=== PATIENT | male | born 1925 | race African-American/Black ===

== ENCOUNTER 2016-04-29 15:19 | Observation (INO) | payer OTHER ==
[~2016-04-29] VITALS: Ht 170.2 cm; Wt 77.3 kg
[~2016-04-29 15:19] MED LIST: ASPI1TAB69 PO; ATOR10TA15 PO; CEPH-460 PO; COLA100C3 PO; COZA25TA PO; FURO20TA PO; METH500T3 PO; METO50TA PO; POTA-243 PO; PROT40TA PO; ZANT150T2 PO
[2016-04-29 15:20] VITALS: BP 136/83; PULSE 77; RESP 16; TEMP 98.2; O2SAT 96
[2016-04-29] MEDS ORDERED: SODIUM CHLORIDE 0.9% FLUSH 5 ML FLUSH IVF PRN (17:15)
[2016-04-29] MEDS ORDERED: MORPHINE SULFATE 4 MG/ML INJ IV PUSH ONE (17:15)
[2016-04-29 17:49] LABS: HEMATOCRIT 46.4 % (39.0-51.0); MEAN CELL VOLUME 88.2 FL (80.0-100.0); MEAN CORPUSCULAR HEMOGLOBIN 28.7 PG (27.0-34.0); MEAN CORPUSCULAR HGB CONC 32.5 % (32.0-36.0); PLATELET COUNT 188 TH/MM3 (150-450); RED BLOOD COUNT 5.26 MIL/MM3 (4.50-5.90); RED CELL DISTRIBUTION WIDTH 14.8 % (11.6-17.2); WHITE BLOOD COUNT 7.4 TH/MM3 (4.0-11.0)
[2016-04-29 17:50] LABS: HEMO FLAGS AUTO DIFF
[2016-04-29 18:02] LABS: APTT (PATIENT) 26.4 SEC (24.3-30.1); INTERNATIONAL NORMALIZED RATIO 1.1 RATIO; PROTHROMBIN TIME - PATIENT 11.8 SEC (9.8-11.6)
--- NOTE | 2016-04-29 18:05 | RADRPT ---
EXAM DATE/TIME: 04/29/2016 17:45 [facility] COMPARISON: CHEST SINGLE AP, March 20, 2016, 15:27. INDICATIONS : Patient fell complains of pain low back area MEDICAL HISTORY : Hypertension. Chronic obstructive pulmonary disease. Carcinoma, bladderCHF, Asthma SURGICAL HISTORY : CABG. Pacemaker. ENCOUNTER: Initial ACUITY: 1 day PAIN SCORE: 9/10 LOCATION: Bilateral chest FINDINGS: A single view of the chest demonstrates the lungs to be symmetrically aerated with persistent atelect asis or scarring in the left base. Lungs are otherwise clear. Heart size is borderline wall compensat ed. Median sternotomy wires and coronary ostial rings are characteristic of prior CABG. Left subclavi an bipolar pacer is radiographically intact. Osseous structures are intact with some degenerative spu rring of the dorsal spine. CONCLUSION: 1. Persistent left basilar atelectasis/scarring. 2. No acute infiltrate. Stable postsurgical changes. Juan Crawley MD on April 29, 2016 at 18:00 Board Certified Radiologist. This report was verified electronically.
[2016-04-29 18:13] LABS: EOSINOPHILS 9 % (0-4); NEUTROPHIL # MANUAL DIFF 5.3 TH/MM3 (1.8-7.7); PLATELET ESTIMATE SMEAR NORMAL (NORMAL); PLATELET MORPHOLOGY NORMAL (NORMAL); POLYS (SEG NEUTROPHILS) 71 % (16-70); SCAN/DIFF FINAL DIFF MANUAL; WBC DIFF SAMPLE 100
--- NOTE | 2016-04-29 18:34 | RADRPT ---
EXAM DATE/TIME: 04/29/2016 17:59 [facility] COMPARISON: CT BRAIN W/O CONTRAST, January 26, 2014, 13:33. INDICATIONS : Trauma; fall. RADIATION DOSE: 56.35 CTDIvol (mGy) MEDICAL HISTORY : Hypertension. Cardiovascular disease SURGICAL HISTORY : None. ENCOUNTER: Initial ACUITY: 1 day PAIN SCALE: 7/10 LOCATION: cranial TECHNIQUE: Multiple contiguous axial images were obtained of the head. Using automated exposure control and adj ustment of the mA and/or kV according to patient size, radiation dose was kept as low as reasonably a chievable to obtain optimal diagnostic quality images. FINDINGS: CEREBRUM: The ventricles are normal for age. Mild cortical atrophic changes. 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 No evidence of midline shift, mass lesion, hemorrhage or acute infarction. No extra-axial fluid collections are seen. POSTERIOR FOSSA: The cerebellum and brainstem are intact. The 4th ventricle is midline. The cerebellopontine angle i s unremarkable. EXTRACRANIAL: The visualized portion of the orbits is intact. SKULL: The calvaria is intact. No evidence of skull fracture. CONCLUSION: 1. Mild chronic changes with some cortical atrophy and an old lacunar type infarct in the right cauda te head. 2. No acute intracranial process. Juan Crawley MD on April 29, 2016 at 18:30 Board Certified Radiologist. This report was verified electronically.
--- NOTE | 2016-04-29 18:53 | RADRPT ---
EXAM DATE/TIME: 04/29/2016 18:01 [facility] COMPARISON: No previous studies available for comparison. INDICATIONS : Fall. RADIATION DOSE: 36.81 CTDIvol (mGy) MEDICAL HISTORY : Cardiovascular disease. Hypertension. SURGICAL HISTORY : None. ENCOUNTER: Initial ACUITY: 1 day PAIN SCORE: 5/10 LOCATION: facial TECHNIQUE: Volumetric scanning of the facial bones was performed. Using automated exposure control and adjustme nt of the mA and/or kV according to patient size, radiation dose was kept as low as reasonably achiev able to obtain optimal diagnostic quality images. FINDINGS: ORBITS: The orbital and infraorbital osseous structures are intact. The retroconal structures have a normal configuration. No radiopaque foreign bodies are seen. NASAL BONE: The nasal bone and maxillary spine are intact ZYGOMATIC ARCHES: Symmetric without evidence of fracture. SINUSES: The maxillary, ethmoid and frontal sinuses are intact. No air-fluid levels seen. NASAL CAVITY: The nasal septum is intact and midline. The lacrimal ducts are intact. Prominent nasoantral windows bilaterally. SOFT TISSUES: No radiopaque foreign bodies seen. No soft-tissue swelling is seen. INTRACRANIAL: No intracranial air seen. CRIBIFORM PLATE: Grossly intact. CONCLUSION: No acute osseous injury. Juan Crawley MD on April 29, 2016 at 18:50 Board Certified Radiologist. This report was verified electronically.
--- NOTE | 2016-04-29 19:00 | RADRPT ---
EXAM DATE/TIME: 04/29/2016 17:59 [facility] COMPARISON: CT CERVICAL SPINE W/O CONTRAST, March 17, 2016, 0:40. INDICATIONS : Fall neck pain. RADIATION DOSE: 23.53 CTDIvol (mGy) MEDICAL HISTORY : Cardiovascular disease. Hypertension. SURGICAL HISTORY : None. ENCOUNTER: Initial ACUITY: 1 day PAIN SCALE: 4/10 LOCATION: Bilateral neck TECHNIQUE: Volumetric scanning of the cervical spine was performed. Multiplanar reconstructions i n the sagittal, coronal and oblique axial planes were performed. Using automated exposure control a nd adjustment of the mA and/or kV according to patient size, radiation dose was kept as low as reason ably achievable to obtain optimal diagnostic quality images. FINDINGS: The sagittal and coronal reconstructions show multilevel degenerative disc disease involving just abo ut every level of the cervical spine with loss of disc height and marginal spurring. Vacuum disc phe nomenon is seen at C5-C6 and C6-C7. There is straightening of the normal lordotic curvature with a g rade I anterolisthesis of C4 on C5. Coronal images show bony fusion across the facet articulations a t multiple cervical levels, particularly on the right. Facet hypertrophy is most prominent rightward at C3-C4. Vertebral body heights are maintained without evidence of fracture. Despite degenerative changes, I believe the spinal canal remains adequate. Detailed axial images as follows: . C2-C3: The bony spinal canal is normal in size. No evidence of disc bulge or herniation. The neura l foramina are bilaterally patent. C3-C4: Rightward facet hypertrophy with uncovertebral ridging narrows the neural foramina bilaterall y, right worse than left. C4-C5: Uncovertebral ridging with some narrowing of the left neural foramen. Spinal canal and right neural foramen are adequate. C5-C6: Uncovertebral ridging. Spinal canal and neural foramina are adequate. C6-C7: Uncovertebral ridging with some facet hypertrophy. Spinal canal and neural foramina are miller nt. C7-T1: Spinal canal and neural foramina are patent. CONCLUSION: 1. Multilevel degenerative disc disease with loss of disc height and marginal spurring at almost michelle ry cervical level. There is straightening of the normal lordotic curvature and stable grade I wendy listhesis of C4 on C5 probably due to facet degeneration. 2. Multilevel bony fusion across the facets of the cervical spine, right greater than left. 3. There is some foraminal narrowing most prominent at C3-C4 rightward and C4-C5 leftward which may compromise their corresponding exiting nerve roots. 4. No significant change from prior. Juan Crawley MD on April 29, 2016 at 18:45 Board Certified Radiologist. This report was verified electronically.
--- NOTE | 2016-04-29 19:05 | RADRPT ---
EXAM DATE/TIME: 04/29/2016 18:03 [facility] COMPARISON: No previous studies available for comparison. INDICATIONS : Lower back pain, fall. RADIATION DOSE: 35.76 CTDIvol (mGy) MEDICAL HISTORY : Cardiovascular disease. Hypertension. SURGICAL HISTORY : None. ENCOUNTER: Initial ACUITY: 1 day PAIN SCALE: 5/10 LOCATION: Lower back TECHNIQUE: Volumetric scanning of the lumbar spine was performed. Multiplanar reconstructions in the sagittal, coronal and oblique axial planes were performed. Using automated exposure control and adjustment of the mA and/or kV according to patient size, radiation dose was kept as low as reasonably achievable t o obtain optimal diagnostic quality images. FINDINGS: Sagittal and coronal reconstructions show multilevel degenerative disc disease with bridging anterior osteophytes in the lower dorsal spine as well as prominent lateral osteophytes at L3-L4 rightward an d bilaterally at L4-L5, left greater than right. There is bony fusion at L1-L2 with an osseous cyst across the fused vertebral bodies. Vertebral body heights are maintained without evidence of an acut e fracture. The coronal images show coarsened trabeculae involving the left ilium characteristic of Paget's disease. There is some atherosclerotic calcification of the regional vasculature. On the axial source images, multilevel marginal spurring is identified. There is some encroachment o n the neural foramina at multiple levels but I believe the spinal canal and neural foramina are adequ ate despite the degenerative changes described above. Again, no acute fracture. CONCLUSION: 1. Multilevel degenerative disc disease with marginal spurring most prominent at L3-L4 and L4-L5. 2. Bony fusion at L1-L2 with an osseous cyst bridging the fused endplates. No acute fracture. 3. Coarsened trabeculae in the left ilium characteristic of Paget's disease. 4. No acute osseous injury. Juan Crawley MD on April 29, 2016 at 18:55 Board Certified Radiologist. This report was verified electronically.
[2016-04-29 19:12] VITALS: BP 123/74; PULSE 72; RESP 16; TEMP 98.5; O2SAT 96
[2016-04-29 19:26] LABS: BICARBONATE 26.2 MEQ/L (21.0-32.0); POTASSIUM 4.2 MEQ/L (3.5-5.1)
[2016-04-29] MEDS ORDERED: ULTR50TA5 PO (19:36)
--- NOTE | 2016-04-29 19:36 | PD ---
HPI Chief Complaint: Fall Time Seen by Provider: 17:03 Travel History International Travel<30 days: No Contact w/Intl Traveler<30days: No Traveled to known affect area: No History of Present Illness HPI Patient is an 81-year-old male who had a trip and fall at home states she missed a step going down into his living room and fell on his face. Patient states he was ambulatory after the event but during dinner he had a significant spasm and continues to freeze up and having pain in his lower back in the midline as well as on the right side. He states he was unable to ambulate and his neighbor had to help him to his car and his neighbor drove him in here today. Patient states he has not been having a chest pain shortness of breath abdominal pain nausea vomiting diarrhea. He states he thinks he hit his face flat on the carpet. He states that he thinks he fell hard enough that if he was falling on concrete he likely would've had fractures of his face. PFSH Past Medical History Hx Anticoagulant Therapy: Yes Asthma: No Blood Disorders: No Anxiety: No Depression: No Heart Rhythm Problems: No Cancer: Yes (BLADDER) Cardiac Catheterization: No Cardiovascular Problems: Yes (PACEMAKER, CABG) High Cholesterol: Yes Chemotherapy: No Chest Pain: No Congestive Heart Failure: No COPD: No Diabetes: No Diminished Hearing: Yes Endocrine: No Gastrointestinal Disorders: No Glaucoma: No Genitourinary: No Hepatitis: No Hiatal Hernia: No Hypertension: Yes Immune Disorder: No Implanted Vascular Access Dvce: No Medical other: No Musculoskeletal: No Neurologic: No Psychiatric: No Reproductive: No Respiratory: Yes (TB 60 YRS AGO) Immunizations Current: Yes Radiation Therapy: No Sleep Apnea: No Thyroid Disease: No Past Surgical History Abdominal Surgery: Yes (COLON RESECTION) Cardiac Surgery: Yes (AICD PACEMAKER 03/20/16) Coronary Artery Bypass Graft: No Genitourinary Surgery: Yes (tumor removed off bladder) Tonsillectomy: Yes Other Surgery: Yes (UMBILICAL HERNIA REPAIR) Social History Alcohol Use: Yes (ON OCCASION) Tobacco Use: No Substance Use: No Allergies-Medications (Allergen,Severity, Reaction): Coded Allergies: No Known Allergies (Unverified , 04/29/16) Reported Meds & Prescriptions Reported Meds & Active Scripts Active Ultram (Tramadol HCl) 50 Mg Tab 50 Mg PO Q6H PRN Keflex (Cephalexin) 500 Mg Cap 500 Mg PO Q8H Methocarbamol 500 Mg Tab 500 Mg PO Q8HR PRN Reported Metoprolol Tartrate 50 Mg Tab 50 Mg PO BID Zantac (Ranitidine HCl) 150 Mg Tab 150 Mg PO DAILY Klor-Con 10 (Potassium Chloride) 10 Meq Tab 10 Meq PO DAILY Protonix (Pantoprazole Sodium) 40 Mg Tab 40 Mg PO DAILY Cozaar (Losartan Potassium) 25 Mg Tab 25 Mg PO DAILY Furosemide 20 Mg Tab 20 Mg PO DAILY Colace (Docusate Sodium) 100 Mg Cap 100 Mg PO BID PRN Aspirin 81 Mg Tabdr 81 Mg PO DAILY Atorvastatin (Atorvastatin Calcium) 10 Mg Tab 10 Mg PO HS Review of Systems Except as stated in HPI: all other systems reviewed are Neg Physical Exam Narrative GENERAL: Well-developed well-nourished in no apparent distress SKIN: Warm and dry. There is no visible external finding suggesting trauma no bruising no lacerations. HEAD: Atraumatic. Normocephalic. No sullivan signs no raccoon's eyes in no apparent trauma to his face. EYES: Pupils equal and round. No scleral icterus. No injection or drainage. ENT: No nasal bleeding or discharge. Mucous membranes pink and moist. NECK: Trachea midline. No JVD. CARDIOVASCULAR: Regular rate and rhythm. No murmur appreciated. RESPIRATORY: No accessory muscle use. Clear to auscultation. Breath sounds equal bilaterally. GASTROINTESTINAL: Abdomen soft, non-tender, nondistended. Hepatic and splenic margins not palpable. MUSCULOSKELETAL: No obvious deformities. No clubbing. No cyanosis. No edema. Patient has midline tenderness over the midline approximately L3-L4 of his lumbar spine. There is no midline tenderness in the CT or S spine. Pelvis is stable. There is no tenderness of the knees ankles pelvis hips elbows wrists hands or shoulders. Pulses motor and sensory intact in all 4 extremities, compartments are soft. NEUROLOGICAL: Awake and alert. Cranial nerves II through XII are grossly intact and nonfocal, 5 out of 5 strength distally in all 4 extremities. Normal speech. PSYCHIATRIC: Appropriate mood and affect; insight and judgment normal. Data Data Last Documented VS Vital Signs Date Time Temp Pulse Resp B/P Pulse Ox O2 Delivery O2 Flow Rate FiO2 04/29/16 21:21 16 04/29/16 19:12 98.5 72 123/74 96 Room Air Orders Electrocardiogram (04/29/16 17:13) Basic Metabolic Panel (Bmp) (04/29/16 17:13) Complete Blood Count With Diff (04/29/16 17:13) Prothrombin Time / Inr (Pt) (04/29/16 17:13) Act Partial Throm Time (Ptt) (04/29/16 17:13) Chest, Single Ap (04/29/16 17:13) Ecg Monitoring (04/29/16 17:13) Bilateral Bp Monitoring (04/29/16 17:13) Iv Access Insert/Monitor (04/29/16 17:13) Oximetry (04/29/16 17:13) Oxygen Administration (04/29/16 17:13) Morphine Inj (Morphine Inj) (04/29/16 17:15) Sodium Chloride 0.9% Flush (Ns Flush) (04/29/16 17:15) Ct Brain W/O Iv Contrast(Rout) (04/29/16 ) Ct Cerv Spine W/O Contrast (04/29/16 ) Ct Lumb Spine W/O Contrast (04/29/16 ) Ct Facial Bones W/O Iv Cont (04/29/16 ) Acetamin-Hydrocod 325-5 Mg ([place] 5-325 (04/29/16 20:00) Cyclobenzaprine (Flexeril) (04/29/16 21:30) Labs Laboratory Tests Test 04/29/16 04/29/16 17:30 18:35 White Blood Count 7.4 TH/MM3 Red Blood Count 5.26 MIL/MM3 Hemoglobin 15.1 GM/DL Hematocrit 46.4 % Mean Corpuscular Volume 88.2 FL Mean Corpuscular Hemoglobin 28.7 PG Mean Corpuscular Hemoglobin 32.5 % Concent Red Cell Distribution Width 14.8 % Platelet Count 188 TH/MM3 Mean Platelet Volume 8.6 FL Neutrophils (%) (Auto) % Lymphocytes (%) (Auto) % Monocytes (%) (Auto) % Eosinophils (%) (Auto) % Basophils (%) (Auto) % Neutrophils # (Auto) TH/MM3 Lymphocytes # (Auto) TH/MM3 Monocytes # (Auto) TH/MM3 Eosinophils # (Auto) TH/MM3 Basophils # (Auto) TH/MM3 CBC Comment AUTO DIFF Differential Total Cells 100 Counted Neutrophils % (Manual) 71 % Lymphocytes % 17 % Monocytes % 3 % Eosinophils % 9 % Neutrophils # (Manual) 5.3 TH/MM3 Differential Comment FINAL DIFF MANUAL Platelet Estimate NORMAL Platelet Morphology Comment NORMAL Red Cell Morphology Comment NORMAL Prothrombin Time 11.8 SEC Prothromb Time International 1.1 RATIO Ratio Activated Partial 26.4 SEC Thromboplast Time Sodium Level 141 MEQ/L Potassium Level 4.2 MEQ/L Chloride Level 108 MEQ/L Carbon Dioxide Level 26.2 MEQ/L Anion Gap 7 MEQ/L Blood Urea Nitrogen 17 MG/DL Creatinine 1.08 MG/DL Estimat Glomerular Filtration 78 ML/MIN Rate Random Glucose 141 MG/DL Calcium Level 9.2 MG/DL [facility] Medical Decision Making Medical Screen Exam Complete: Yes Emergency Medical Condition: Yes Interpretation(s) EKG shows sinus rhythm with PACs, biphasic P-wave pattern in lead 2, prolonged MS interval indicates first-degree heart block. There is T-wave inversions in lead V5 and V6 as well as lead 2. Comparison to 03/21/2016 shows no change. Differential Diagnosis Low back pain, lumbar fracture, head injury, facial injury, fall, inability to ambulate Narrative Course Patient was roomed in the emergency department, my initial evaluation is standing but appears quite uncomfortable unable to ambulate away from the cabinet he is leaning on. He was helped into the bed. On my examination he was tender at the L3-L4 [place] the midline. There was some radiculopathy symptoms down the right lower extremity but neurologically he is full strength distally in all 4 extremities. Patient's CAT scan of lumbar spine shows significant arthritic changes in the fusion at L3-L4. There is no injury to his head or his face. Last 24 hours Impressions Chest X-Ray 04/29/16 1713 Signed Impressions: Service Date/Time: Friday, April 29, 2016 17:45 - CONCLUSION: 1. Persistent left basilar atelectasis/scarring. 2. No acute infiltrate. Stable postsurgical changes. Juan Crawley MD Maxillofacial CT 04/29/16 0000 Signed Impressions: Service Date/Time: Friday, April 29, 2016 18:01 - CONCLUSION: No acute osseous injury. Juan Crawley MD Lumbar Spine CT 04/29/16 0000 Signed Impressions: Service Date/Time: Friday, April 29, 2016 18:03 - CONCLUSION: 1. Multilevel degenerative disc disease with marginal spurring most prominent at L3-L4 and L4-L5. 2. Bony fusion at L1-L2 with an osseous cyst bridging the fused endplates. No acute fracture. 3. Coarsened trabeculae in the left ilium characteristic of Paget's disease. 4. No acute osseous injury. Juan Crawley MD Head CT 04/29/16 0000 Signed Impressions: Service Date/Time: Friday, April 29, 2016 17:59 - CONCLUSION: 1. 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 2. No acute intracranial process. Juan Crawley MD Cervical Spine CT 04/29/16 0000 Signed Impressions: Service Date/Time: Friday, April 29, 2016 17:59 - CONCLUSION: 1. Multilevel degenerative disc disease with loss of disc height and marginal spurring at almost every cervical level. There is straightening of the normal lordotic curvature and stable grade I anterolisthesis of C4 on C5 probably due to facet degeneration. 2. Multilevel bony fusion across the facets of the cervical spine, right greater than left. 3. There is some foraminal narrowing most prominent at C3-C4 rightward and C4-C5 leftward which may compromise their corresponding exiting nerve roots. 4. No significant change from prior. Juan Crawley MD Patient was given morphine as well as Percocet. He initially felt much better but continues to be in too much pain to ambulate. Patient lives at home alone have concerns for his safety at home as he is not even able to ambulatory to the bathroom at this time. His labs are reassuring EKG is normal. I appreciate a purely mechanical type fall. I discussed with him that if he is unable to ambulate I have strong reservations about him going home at this time. He is agreeable for observation status. Patient was discussed with Dr. Lee who will admit. Diagnosis Primary Impression: Low back pain Qualified Code: M54.41 - Acute right-sided low back pain with right-sided sciatica Additional Impression: Fall Med/Other Pt SpecificInfo: Prescription(s) given Scripts Tramadol (Ultram)50 Mg Tab50 Mg PO Q6H PRN (PAIN) #12 TAB Ref 0 Prov:Bertrand Ahumada MD 1/22/17 Disposition: 01 DISCHARGE HOME Condition: Stable Ahumada,Bertrand J MD Apr 29, 2016 19:36
[2016-04-29] MEDS ORDERED: ACETAMINOPHEN/HYDROcodone 325 MG/5 MG TAB PO ONE (20:00)
--- NOTE | 2016-04-29 21:25 | HHI.HP ---
[facility] Non-Staff Admission Diagnosis Inability to ambulate, Low back pain. Diagnoses: (1) Fall Diagnosis: Principal (2) Intractable back pain Diagnosis: Principal (3) Unable to ambulate Diagnosis: Principal Travel History International Travel<30 Days: No Contact w/Intl Traveler <30 Da: No Traveled to Known Affected Are: No History of Present Illness This is an 89-year-old male with a PMH of Bladder CA, CAD, Pacemaker and HTN who presented to ER w/ complaints of back pain following fall at home. States he fell down one step and landed on his face. No LOC reported. On arrival, BP 136/83, HR 77, O2 sat 96% on RA, Afebrile. CBC unremarkable. Chemistry essentially unremarkable. CT Head with no acute findings. CT Maxillofacial negative. CT C-spine with multilevel degenerative disc disease, no acute changes from prior. CT L-spine with multilevel degenerative disc disease no acute findings. CXR with left basilar scarring, no infiltrate. S/p Morphine and Flexeril in ER w/ some relief. Pt was to be d/c'd home, however unable to ambulate secondary to pain. Pt lives at home alone, unsafe discharge. Review of Systems Other ROS: 14 point review of systems otherwise negative. Past Family Social History Past Medical History PMH: Bladder CA, CAD, Pacemaker and HTN Past Surgical History PAST SURGICAL HISTORY: Colon Resection, AICD, Tonsillectomy, Umbilical Hernia Repair, Bladder Surgery Allergies: Coded Allergies: No Known Allergies (Unverified , 04/29/16) Family History PAST FAMILY HISTORY: Reviewed. No h/o DM or CAD Social History PAST SOCIAL HISTORY: Occasional alcohol. Negative for tobacco or drugs. Physical Exam Vital Signs Vital Signs Date Time Temp Pulse Resp B/P Pulse Ox O2 Delivery O2 Flow Rate FiO2 04/29/16 21:21 16 04/29/16 19:12 98.5 72 16 123/74 96 Room Air 04/29/16 19:07 18 04/29/16 17:26 97 Room Air 04/29/16 15:20 98.2 77 16 136/83 96 Physical Exam PE: GENERAL: Pleasant elderly male in no acute distress. HEENT: PERRLA, EOMI. No scleral icterus or conjunctival pallor. No lid lag or facial droop. CARDIOVASCULAR: Regular rate and rhythm. No obvious murmurs to auscultation. No chest tenderness to palpation. RESPIRATORY: No obvious rhonchi or wheezing. Clear to auscultation. Breath sounds equal bilaterally. GASTROINTESTINAL: Abdomen soft, non-tender, nondistended. BS normal. MUSCULOSKELETAL: Extremities without clubbing, cyanosis, or edema. No obvious deformities. Decreased ROM of lower extremities due to pain. NEUROLOGICAL: Awake, alert and oriented x4. No focal neurologic deficits. Moving both upper and lower extremities spontaneously. Laboratory Laboratory Tests Test 04/29/16 04/29/16 17:30 18:35 White Blood Count 7.4 Red Blood Count 5.26 Hemoglobin 15.1 Hematocrit 46.4 Mean Corpuscular Volume 88.2 Mean Corpuscular Hemoglobin 28.7 Mean Corpuscular Hemoglobin 32.5 Concent Red Cell Distribution Width 14.8 Platelet Count 188 Mean Platelet Volume 8.6 Neutrophils (%) (Auto) Lymphocytes (%) (Auto) Monocytes (%) (Auto) Eosinophils (%) (Auto) Basophils (%) (Auto) Neutrophils # (Auto) Lymphocytes # (Auto) Monocytes # (Auto) Eosinophils # (Auto) Basophils # (Auto) CBC Comment AUTO DIFF Differential Total Cells 100 Counted Neutrophils % (Manual) 71 Lymphocytes % 17 Monocytes % 3 Eosinophils % 9 Neutrophils # (Manual) 5.3 Differential Comment FINAL DIFF MANUAL Platelet Estimate NORMAL Platelet Morphology Comment NORMAL Red Cell Morphology Comment NORMAL Prothrombin Time 11.8 Prothromb Time International 1.1 Ratio Activated Partial 26.4 Thromboplast Time Sodium Level 141 Potassium Level 4.2 Chloride Level 108 Carbon Dioxide Level 26.2 Anion Gap 7 Blood Urea Nitrogen 17 Creatinine 1.08 Estimat Glomerular Filtration 78 Rate Random Glucose 141 Calcium Level 9.2 Result Diagram: 04/29/16 1730 04/29/16 1835 Assessment and Plan Problem List: (1) Fall ICD Code: W19.XXXA Status: Acute (2) Intractable back pain ICD Code: M54.9 Status: Acute (3) Unable to ambulate ICD Code: R26.2 Status: Acute Assessment and Plan A/P: 1. Fall: s/p mechanical trip and fall at home, CT Head/CT Maxillofacial w/ no acute findings. CT C/L-Spine w/ multilevel degenerative disk disease, however no acute findings, images reviewed by me. 2. Intractable Back Pain: Secondary to fall. S/p Morphine/Flexeril in ER w/ some improvement. Continue analgesics/antiemetics and muscle relaxants. PT for eval/tx. 3. Unable to Ambulate: Secondary to pain. Treatment as above, PT for eval/ tx. 4. DVT Prophylaxis: SCD/Teds. 5. Social work for d/c planning as needed. 6. Case discussed w/ ER physician at length. Bettie Mooney MD Apr 29, 2016 21:25
[2016-04-29] MEDS ORDERED: SODIUM CHLORIDE 0.9% FLUSH 5 ML FLUSH FLUSH PRN (21:30)
[2016-04-29] MEDS ORDERED: ONDANSETRON HCL 4 MG/2 ML VIAL IVP PRN (21:30)
[2016-04-29] MEDS ORDERED: ACETAMINOPHEN 325 MG TAB PO PRN (21:30)
[2016-04-29] MEDS ORDERED: CYCLOBENZAPRINE HCL 10 MG TAB PO PRN (21:30)
[2016-04-29] MEDS ORDERED: HYDROmorphone HCL PF 1 MG/ML VIAL IV PRN (21:30)
[2016-04-29] MEDS ORDERED: CYCLOBENZAPRINE HCL 10 MG TAB PO ONE (21:30)
[2016-04-29] MEDS ORDERED: methylPREDNISolone SOD SUCC 125 MG/2 ML VIAL IV PUSH ONE (21:30)
[2016-04-29] MEDS ORDERED: BISACODYL 10 MG SUPP PR PRN (21:30)
[2016-04-29 23:33] VITALS: BP 132/68; TEMP 98.1
[2016-04-30] VITALS (7 sets, daily range): BP systolic 104–133; BP diastolic 56–76; PULSE 52–71; RESP 16–20; TEMP 95.3–97.7; O2SAT 94–97
[2016-04-30 01:09] LABS: BLOOD, URINE TRACE (NEG); COMMENT (UR) CULT NOT INDICATED; CULTURE IF INDICATED CULT NOT INDICATED; GLUCOSE,URINE NEG (NEG); KETONE, URINE NEG (NEG); MUCUS URINE FEW /lpf (OCC); NITRITE,URINE NEG (NEG); URINE COLOR YELLOW (YELLW/STRAW)
[2016-04-30 06:07] LABS: AUTOMATED NEUTROPHIL # 5.2 TH/MM3 (1.8-7.7); BASOPHIL % 0.2 % (0.0-2.0); EOSINOPHIL % 0.4 % (0.0-4.0); HEMATOCRIT 41.8 % (39.0-51.0); HEMO FLAGS DIFF FINAL; LYMPH % 17.1 % (9.0-44.0); LYMPHOCYTE # 1.1 TH/MM3 (1.0-4.8); MEAN CELL VOLUME 86.5 FL (80.0-100.0); MEAN CORPUSCULAR HEMOGLOBIN 28.7 PG (27.0-34.0); MEAN CORPUSCULAR HGB CONC 33.2 % (32.0-36.0); MONO % 1.4 % (0.0-8.0); NEUT % 80.9 % (16.0-70.0); PLATELET COUNT 153 TH/MM3 (150-450); RED BLOOD COUNT 4.83 MIL/MM3 (4.50-5.90); RED CELL DISTRIBUTION WIDTH 14.3 % (11.6-17.2); WHITE BLOOD COUNT 6.4 TH/MM3 (4.0-11.0)
[2016-04-30 06:28] LABS: ALT (GPT) 52 U/L (12-78); ANION GAP 7 MEQ/L (5-15); AST (GOT) 49 U/L (15-37); BICARBONATE 25.3 MEQ/L (21.0-32.0); BLOOD UREA NITROGEN 18 MG/DL (7-18); CHLORIDE 107 MEQ/L (98-107); GLOMERULAR FILTRATION RATE 81 ML/MIN (>89); POTASSIUM 4.7 MEQ/L (3.5-5.1); SODIUM (NA) 139 MEQ/L (136-145)
[2016-04-30 06:30] LABS: ALKALINE PHOSPHATASE 336 U/L (45-117); TOTAL BILIRUBIN ADULT 0.8 MG/DL (0.2-1.0)
[2016-04-30] MEDS: SODIUM CHLORIDE 0.9% FLUSH 5 ML FLUSH FLUSH SCH ×2 (09:30→22:04)
--- NOTE | 2016-04-30 10:00 | HHI.PR ---
Subjective Remarks Follow-up for fall and back pain. The patient states that yesterday he has a small step in his house, and missed the step off of that and had a fall. He states while lying in bed, he denies any pain. He does his lower back pain whenever he sits up. Hasn't tried ambulating yet. He does live at home by himself. History of irregular heartbeat, status post pacemaker placement last month. Patient understands that he may need to go to a rehabilitation facility. Objective Vitals Vital Signs Date Time Temp Pulse Resp B/P Pulse Ox O2 Delivery O2 Flow Rate FiO2 04/30/16 07:58 95.3 71 16 133/75 96 04/30/16 05:06 96.0 61 18 129/76 94 04/30/16 02:08 96.7 66 20 118/62 94 04/29/16 23:33 98.1 71 16 132/68 97 04/29/16 21:21 16 04/29/16 19:12 98.5 72 16 123/74 96 Room Air 04/29/16 19:10 18 97 Room Air 04/29/16 19:07 18 04/29/16 17:26 97 Room Air 04/29/16 15:20 98.2 77 16 136/83 96 I/O 04/29/16 04/29/16 04/29/16 04/30/16 04/30/16 04/30/16 07:00 15:00 23:00 07:00 15:00 23:00 Output Total 550 ml Balance -550 ml Output Urine Total 550 ml Result Diagram: 04/30/16 0520 04/30/16 0520 Imaging Last Impressions Chest X-Ray 04/29/16 1713 Signed Impressions: Service Date/Time: Friday, April 29, 2016 17:45 - CONCLUSION: 1. Persistent left basilar atelectasis/scarring. 2. No acute infiltrate. Stable postsurgical changes. Juan Crawley MD Maxillofacial CT 04/29/16 0000 Signed Impressions: Service Date/Time: Friday, April 29, 2016 18:01 - CONCLUSION: No acute osseous injury. Juan Crawley MD Lumbar Spine CT 04/29/16 0000 Signed Impressions: Service Date/Time: Friday, April 29, 2016 18:03 - CONCLUSION: 1. Multilevel degenerative disc disease with marginal spurring most prominent at L3-L4 and L4-L5. 2. Bony fusion at L1-L2 with an osseous cyst bridging the fused endplates. No acute fracture. 3. Coarsened trabeculae in the left ilium characteristic of Paget's disease. 4. No acute osseous injury. Juan Crawley MD Head CT 04/29/16 0000 Signed Impressions: Service Date/Time: Friday, April 29, 2016 17:59 - CONCLUSION: 1. 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 2. No acute intracranial process. Juan Crawley MD Cervical Spine CT 04/29/16 0000 Signed Impressions: Service Date/Time: Friday, April 29, 2016 17:59 - CONCLUSION: 1. Multilevel degenerative disc disease with loss of disc height and marginal spurring at almost every cervical level. There is straightening of the normal lordotic curvature and stable grade I anterolisthesis of C4 on C5 probably due to facet degeneration. 2. Multilevel bony fusion across the facets of the cervical spine, right greater than left. 3. There is some foraminal narrowing most prominent at C3-C4 rightward and C4-C5 leftward which may compromise their corresponding exiting nerve roots. 4. No significant change from prior. Juan Crawley MD Objective Remarks GENERAL: Well-developed well-nourished. In no acute distress. SKIN: Warm and dry. No lesions noted. HEENT: Normocephalic. Pupils equal and round. Mucous membranes pink and moist. CARDIOVASCULAR: Irregular rate and rhythm. No murmur appreciated. RESPIRATORY: No accessory muscle use. Clear to auscultation. Breath sounds equal bilaterally. GASTROINTESTINAL: Abdomen soft, non-tender, nondistended. Bowel sounds x4. MUSCULOSKELETAL: No obvious deformities. No clubbing or cyanosis. No edema. Able to perform active straight leg raise bilaterally with no pain. Right lumbar spine tender to palpation. NEUROLOGICAL: Awake and alert. No focal neurological deficits. Moves upper and lower extremities spontaneously. Normal speech. PSYCHIATRIC: Appropriate mood and affect; insight and judgment normal. A/P Problem List: (1) Fall ICD Code: W19.XXXA Status: Acute (2) Intractable back pain ICD Code: M54.9 Status: Acute (3) Unable to ambulate ICD Code: R26.2 Status: Acute Assessment and Plan 89-year-old male with a PMH of Bladder CA, CAD, Pacemaker and HTN who presented to after a fall at home and was unable to be discharged secondary to back pain with ambulation Fall: s/p mechanical trip and fall at home. Images reviewed: CT Head/CT Maxillofacial w/ no acute findings. CT C/L-Spine w / multilevel degenerative disk disease, however no acute findings. Head CT with mild chronic changes with some cortical atrophy and old lacunar type infarct, no acute intracranial process. Chest x-ray persistent left basilar atelectasis/scarring, no acute infiltrate. -Supportive care Intractable Back Pain and difficulty with ambulation: Secondary to fall. S/p Morphine/Flexeril in ER w/ some improvement. Continue oral and IV narcotics as needed for pain. Continue home muscle relaxants. PT for eval/tx. Reentry atrial tachycardia/HTN/HLD: Chronic, stable. Status post pacemaker placement. Continue aspirin, statin, metoprolol, losartan. GERD: Chronic, stable. Continue PPI and Zantac. DVT Prophylaxis: SCD/Teds. Written by Stephan Barnett, acting as scribe for Dr. Isabel on 04/30/16 at 09:59. The documentation accurately reflects the work performed [id number] by me on at [id number] Discharge Planning PT recommends SNF, case management consulted. Problem Qualifiers (1) Fall: Qualified Code: W19.XXXA - Fall, initial encounter Stephan Barnett Apr 30, 2016 10:00 Bruno Isabel MD Apr 30, 2016 16:12
[2016-04-30] MEDS ORDERED: METHOCARBAMOL 500 MG TAB PO PRN (11:30)
[2016-04-30] MEDS ORDERED: RANITIDINE HCL 150 MG TAB PO SCH (11:30)
[2016-04-30] MEDS: METOPROLOL TARTRATE 50 MG TAB PO SCH ×2 (12:56→21:00)
--- NOTE | 2016-04-30 17:05 | EKG ---
Date Performed: 04/29/2016 Time Performed: 18:16:53 PTAGE: 89 years EKG: Sinus rhythm WITH FIRST DEGREE AV BLOCK WITH OCCASIONAL VENTRICULAR PREMATURE COMPLEXES WITH FREQUENT SUPRAVENTRI CULAR PREMATURE COMPLEXES INDETERMINATE AXIS MODERATE T-WAVE ABNORMALITY, CONSIDER LATERAL ISCHEMIA M ODERATE T-WAVE ABNORMALITY, CONSIDER INFERIOR ISCHEMIA Compared to prior tracing no significant beard e ABNORMAL ECG PREVIOUS TRACING : 03/21/2016 05.33 DOCTOR: Juan Ferreira Interpretating Date/Time 04/30/2016 17:02:43
[2016-04-30] MEDS: ACETAMINOPHEN/HYDROcodone 325 MG/5 MG TAB PO PRN (22:05)
[2016-04-30] MEDS: ATORVASTATIN 10 MG TAB PO SCH (22:05)
[2016-05-01 05:22] VITALS: BP 131/74; PULSE 58; RESP 20; TEMP 98.2; O2SAT 93
[2016-05-01] MEDS ORDERED: NORC5TAB PO (07:55)
[2016-05-01 08:00] VITALS: BP 128/82; PULSE 67; RESP 16; TEMP 96.3; O2SAT 99
--- NOTE | 2016-05-01 08:03 | HHI.DCPOC ---
Discharge Care Plan Diagnosis: (1) Unable to ambulate (2) Intractable back pain Goals to Promote Your Health * To prevent worsening of your condition and complications * To maintain your health at the optimal level Directions to Meet Your Goals Take your medications as prescribed Follow your dietary instruction Follow activity as directed Keep your appointments as scheduled Take your immunizations and boosters as scheduled If your symptoms worsen call your PCP, if no PCP go to Urgent Care Center or Emergency Room Smoking is Dangerous to Your Health. Avoid second hand smoke Call the 24-hour hour crisis hotline for domestic abuse at Ana Jasmine PA-C May 01, 2016 08:02 Margot Daniels MD May 01, 2016 12:49
--- NOTE | 2016-05-01 08:17 | HHI.PR ---
Subjective Remarks Follow up for fall, low back pain, inability to ambulate. The patient reports continued low back pain, described more as "stiffness." He is looking forward to going to rehab. He is requesting to speak with case resolution specialist regarding placement options. Objective Vitals Vital Signs Date Time Temp Pulse Resp B/P Pulse Ox O2 Delivery O2 Flow Rate FiO2 05/01/16 05:22 98.2 58 20 131/74 93 04/30/16 23:28 18 04/30/16 23:16 97.7 52 20 104/56 94 04/30/16 20:26 97.6 57 20 120/64 97 04/30/16 16:47 95.9 54 16 105/56 94 04/30/16 12:34 95.8 63 16 121/65 95 Result Diagram: 04/30/16 0520 04/30/16 0520 Imaging Last Impressions Chest X-Ray 04/29/16 1713 Signed Impressions: Service Date/Time: Friday, April 29, 2016 17:45 - CONCLUSION: 1. Persistent left basilar atelectasis/scarring. 2. No acute infiltrate. Stable postsurgical changes. Juan Crawley MD Maxillofacial CT 04/29/16 0000 Signed Impressions: Service Date/Time: Friday, April 29, 2016 18:01 - CONCLUSION: No acute osseous injury. Juan Crawley MD Lumbar Spine CT 04/29/16 0000 Signed Impressions: Service Date/Time: Friday, April 29, 2016 18:03 - CONCLUSION: 1. Multilevel degenerative disc disease with marginal spurring most prominent at L3-L4 and L4-L5. 2. Bony fusion at L1-L2 with an osseous cyst bridging the fused endplates. No acute fracture. 3. Coarsened trabeculae in the left ilium characteristic of Paget's disease. 4. No acute osseous injury. Juan Crawley MD Head CT 04/29/16 0000 Signed Impressions: Service Date/Time: Friday, April 29, 2016 17:59 - CONCLUSION: 1. 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 2. No acute intracranial process. Juan Crawley MD Cervical Spine CT 04/29/16 0000 Signed Impressions: Service Date/Time: Friday, April 29, 2016 17:59 - CONCLUSION: 1. Multilevel degenerative disc disease with loss of disc height and marginal spurring at almost every cervical level. There is straightening of the normal lordotic curvature and stable grade I anterolisthesis of C4 on C5 probably due to facet degeneration. 2. Multilevel bony fusion across the facets of the cervical spine, right greater than left. 3. There is some foraminal narrowing most prominent at C3-C4 rightward and C4-C5 leftward which may compromise their corresponding exiting nerve roots. 4. No significant change from prior. Juan Crawley MD Objective Remarks GENERAL: Well-nourished, well-developed elderly male patient in [place]. SKIN: Warm and dry. No rash. HEAD: Normocephalic. Atraumatic. EYES: Pupils equal and round. No scleral icterus. No injection or drainage. ENT: No nasal bleeding or discharge. Mucous membranes pink and moist. NECK: Supple. Trachea midline. CARDIOVASCULAR: Regular rate and rhythm. S1, S2 noted. No murmur appreciated. RESPIRATORY: No accessory muscle use. Clear to auscultation. Breath sounds equal bilaterally. GASTROINTESTINAL: Abdomen soft, non-tender, nondistended. Normoactive bowel sounds x4. MUSCULOSKELETAL: No obvious deformities. Extremities without clubbing, cyanosis , or edema. Right lumbar paraspinous muscle tenderness to palpation. NEUROLOGICAL: Awake and alert. No obvious cranial nerve deficits. Motor grossly within normal limits. Moving all extremities spontaneously with generalzied weakness. Normal speech. PSYCHIATRIC: Appropriate mood and affect; insight and judgment normal. Medications and IVs Current Medications Medications (Trade) Dose Ordered Sig/Chris Route Start Time Stop Time Status Last Admin (NS Flush) 2 ml UNSCH PRN FLUSH 04/29/16 21:30 04/29/16 21:38 (NS Flush) 2 ml BID FLUSH 04/30/16 09:00 04/30/16 22:04 (Zofran Inj) 4 mg Q6H PRN IVP 04/29/16 21:30 (Dulcolax Supp) [address] 04/29/16 21:30 (Tylenol) 650 mg Q6H PRN PO 04/29/16 21:30 ([place] 5-325 Mg) 1 tab Q4H PRN PO 04/29/16 21:30 04/30/16 22:05 (Dilaudid Pf Inj) 0.5 mg Q3H PRN IV 04/29/16 21:30 (Ecotrin Ec) 81 mg DAILY PO 05/01/16 09:00 (Lipitor) 10 mg HS PO 04/30/16 21:00 04/30/16 22:05 (Lasix) 20 mg DAILY PO 05/01/16 09:00 (Cozaar) 25 mg DAILY PO 05/01/16 09:00 (Robaxin) 500 mg Q8HR PRN PO 04/30/16 11:30 (Lopressor) 50 mg BID PO 04/30/16 12:30 04/30/16 12:56 (Protonix) 40 mg DAILY PO 05/01/16 09:00 Urinary Catheter: No Vascular Central Line Catheter: No A/P Problem List: (1) Fall ICD Code: W19.XXXA Status: Acute (2) Intractable back pain ICD Code: M54.9 Status: Acute (3) Unable to ambulate ICD Code: R26.2 Status: Acute Assessment and Plan 89-year-old male with a PMH of Bladder CA, CAD, Pacemaker and HTN who presented to after a fall at home and was unable to be discharged secondary to back pain with ambulation Fall: s/p mechanical trip and fall at home. Images reviewed including CT Head/ CT Maxillofacial w/ no acute findings; CT C/L-Spine w/ multilevel degenerative disc disease, however no acute findings; Head CT with mild chronic changes with some cortical atrophy and old lacunar type infarct, no acute intracranial process; CXR persistent left basilar atelectasis/scarring, no acute infiltrate. Fall precautions. Continue supportive care, see below. with Intractable Back Pain and difficulty with ambulation: Secondary to fall. S/p Morphine/Flexeril in ER w/ some improvement. Continue pain control with [place] prn, IV Dilaudid prn breakthrough pain; Robaxin prn spasms, heating pad. PT recommending rehab, case management to assist with placement. Reentry atrial tachycardia/HTN/HLD: Chronic, stable. S/p pacemaker placement. Continue aspirin, statin, metoprolol, losartan. GERD: Chronic, stable. Continue PPI and Zantac. DVT Prophylaxis: SCD/Teds. Written by Ana Jasmine, acting as scribe for Dr. Daniels on 05/01/16 at 07:35. The documentation accurately reflects the work performed [id number] by me Dr. Daniels on 05/01/16 at 07:35. Discharge Planning Discharge patient to SNF Condition on discharge: Stable Heart Healthy Diet as tolerated Ad Patty activity Rx written: Lit Follow-up with primary care physician within 2-3 days Problem Qualifiers (1) Fall: Qualified Code: W19.XXXA - Fall, initial encounter Ana Jasmine PA-C May 01, 2016 08:17 Margot Daniels MD May 01, 2016 12:50
[2016-05-01] MEDS: ASPIRIN EC 81 MG TABEC PO SCH (09:00)
[2016-05-01] MEDS: SODIUM CHLORIDE 0.9% FLUSH 5 ML FLUSH FLUSH SCH ×2 (09:09→21:32)
[2016-05-01] MEDS: METOPROLOL TARTRATE 50 MG TAB PO SCH ×2 (09:10→21:32)
[2016-05-01] MEDS: FUROSEMIDE 20 MG TAB PO SCH (09:10)
[2016-05-01] MEDS: LOSARTAN 25 MG TAB PO SCH (09:10)
[2016-05-01] MEDS: PANTOPRAZOLE SOD 40 MG DELAYED RELEASE TAB PO SCH (09:10)
[2016-05-01 12:00] VITALS: BP 125/72; PULSE 71; RESP 16; TEMP 96.7; O2SAT 98
[2016-05-01 16:00] VITALS: BP 121/69; PULSE 66; RESP 16; TEMP 97.3; O2SAT 96
[2016-05-01] MEDS: ACETAMINOPHEN/HYDROcodone 325 MG/5 MG TAB PO PRN (17:39)
[2016-05-01 19:37] VITALS: BP 122/70; PULSE 80; RESP 18; TEMP 97.9; O2SAT 96
[2016-05-01] MEDS: ATORVASTATIN 10 MG TAB PO SCH (21:32)
[2016-05-02] MEDS: ACETAMINOPHEN/HYDROcodone 325 MG/5 MG TAB PO PRN ×3 (02:16→15:37)
[2016-05-02 02:20] VITALS: BP 141/68; PULSE 63; RESP 16; TEMP 97.5; O2SAT 97
[2016-05-02 03:58] VITALS: BP 112/69; PULSE 66; RESP 16; TEMP 96.5; O2SAT 98
[2016-05-02 04:00] VITALS: BP 112/66; PULSE 66; RESP 16; TEMP 96.5; O2SAT 98
[2016-05-02 08:00] VITALS: BP 141/77; PULSE 60; RESP 18; TEMP 96.9; O2SAT 97
[2016-05-02] MEDS: PANTOPRAZOLE SOD 40 MG DELAYED RELEASE TAB PO SCH (10:18)
[2016-05-02] MEDS: ASPIRIN EC 81 MG TABEC PO SCH (10:18)
[2016-05-02] MEDS: FUROSEMIDE 20 MG TAB PO SCH (10:18)
[2016-05-02] MEDS: METOPROLOL TARTRATE 50 MG TAB PO SCH (10:19)
[2016-05-02] MEDS: SODIUM CHLORIDE 0.9% FLUSH 5 ML FLUSH FLUSH SCH (10:28)
--- NOTE | 2016-05-02 11:38 | HHI.PR ---
Subjective Remarks Complaints of constipation. Says he has pain however he tryes to avoid pain meds as much as he can. No fever or chills. Ambulating with a walker. Objective Vitals Vital Signs Date Time Temp Pulse Resp B/P Pulse Ox O2 Delivery O2 Flow Rate FiO2 05/02/16 08:00 96.9 60 18 141/77 97 05/02/16 04:00 96.5 66 16 112/66 98 05/02/16 03:58 96.5 66 16 112/69 98 05/02/16 02:20 97.5 63 16 141/68 97 05/01/16 19:37 97.9 80 18 122/70 96 05/01/16 16:00 97.3 66 16 121/69 96 05/01/16 12:00 96.7 71 16 125/72 98 I/O 05/01/16 05/01/16 05/01/16 05/02/16 05/02/16 05/02/16 07:00 15:00 23:00 07:00 15:00 23:00 Intake Total 1020 ml 200 ml Output Total 400 ml 400 ml Balance 620 ml -200 ml Intake Oral 1020 ml 200 ml Output Urine Total 400 ml 400 ml # Bowel Movements 0 0 Result Diagram: 04/30/16 0520 04/30/16 0520 Imaging Last Impressions Chest X-Ray 04/29/16 1713 Signed Impressions: Service Date/Time: Friday, April 29, 2016 17:45 - CONCLUSION: 1. Persistent left basilar atelectasis/scarring. 2. No acute infiltrate. Stable postsurgical changes. Juan Crawley MD Maxillofacial CT 04/29/16 0000 Signed Impressions: Service Date/Time: Friday, April 29, 2016 18:01 - CONCLUSION: No acute osseous injury. Juan Crawley MD Lumbar Spine CT 04/29/16 0000 Signed Impressions: Service Date/Time: Friday, April 29, 2016 18:03 - CONCLUSION: 1. Multilevel degenerative disc disease with marginal spurring most prominent at L3-L4 and L4-L5. 2. Bony fusion at L1-L2 with an osseous cyst bridging the fused endplates. No acute fracture. 3. Coarsened trabeculae in the left ilium characteristic of Paget's disease. 4. No acute osseous injury. Juan Crawley MD Head CT 04/29/16 0000 Signed Impressions: Service Date/Time: Friday, April 29, 2016 17:59 - CONCLUSION: 1. 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 2. No acute intracranial process. Juan Crawley MD Cervical Spine CT 04/29/16 0000 Signed Impressions: Service Date/Time: Friday, April 29, 2016 17:59 - CONCLUSION: 1. Multilevel degenerative disc disease with loss of disc height and marginal spurring at almost every cervical level. There is straightening of the normal lordotic curvature and stable grade I anterolisthesis of C4 on C5 probably due to facet degeneration. 2. Multilevel bony fusion across the facets of the cervical spine, right greater than left. 3. There is some foraminal narrowing most prominent at C3-C4 rightward and C4-C5 leftward which may compromise their corresponding exiting nerve roots. 4. No significant change from prior. Juan Crawley MD Objective Remarks GENERAL: Well-nourished, well-developed elderly male patient in [facility]. SKIN: Warm and dry. No rash. HEAD: Normocephalic. Atraumatic. EYES: Pupils equal and round. No scleral icterus. No injection or drainage. ENT: No nasal bleeding or discharge. Mucous membranes pink and moist. NECK: Supple. Trachea midline. CARDIOVASCULAR: Regular rate and rhythm. S1, S2 noted. No murmur appreciated. RESPIRATORY: No accessory muscle use. Clear to auscultation. Breath sounds equal bilaterally. GASTROINTESTINAL: Abdomen soft, non-tender, nondistended. Normoactive bowel sounds x4. MUSCULOSKELETAL: No obvious deformities. Extremities without clubbing, cyanosis , or edema. Right lumbar paraspinous muscle tenderness to palpation. NEUROLOGICAL: Awake and alert. No obvious cranial nerve deficits. Motor grossly within normal limits. Moving all extremities spontaneously with generalized weakness. Normal speech. PSYCHIATRIC: Appropriate mood and affect; insight and judgment normal. A/P Problem List: (1) Fall ICD Code: W19.XXXA Status: Acute (2) Intractable back pain ICD Code: M54.9 Status: Acute (3) Unable to ambulate ICD Code: R26.2 Status: Acute Assessment and Plan 89-year-old male with a PMH of Bladder CA, CAD, Pacemaker and HTN who presented to after a fall at home and was unable to be discharged secondary to back pain with ambulation Fall: s/p mechanical trip and fall at home. Images reviewed including CT Head/ CT Maxillofacial w/ no acute findings; CT C/L-Spine w/ multilevel degenerative disc disease, however no acute findings; Head CT with mild chronic changes with some cortical atrophy and old lacunar type infarct, no acute intracranial process; CXR persistent left basilar atelectasis/scarring, no acute infiltrate. Fall precautions. Continue supportive care, see below. with Intractable Back Pain and difficulty with ambulation: Secondary to fall. S/p Morphine/Flexeril in ER w/ some improvement. Continue pain control with [place] prn, IV Dilaudid prn breakthrough pain; Robaxin prn spasms, heating pad. PT recommending rehab, case management to assist with placement. Will check vit D Constipation: stool softeners/laxatives. Reentry atrial tachycardia/HTN/HLD: Chronic, stable. S/p pacemaker placement. Continue aspirin, statin, metoprolol, losartan. GERD: Chronic, stable. Continue PPI and Zantac. DVT Prophylaxis: SCD/Teds. Discharge Planning Discharge patient to SNF Condition on discharge: Stable Heart Healthy Diet as tolerated Ad Patty activity Rx written: [place] Follow-up with primary care physician within 2-3 days Problem Qualifiers (1) Fall: Qualified Code: W19.XXXA - Fall, initial encounter Margot Daniels MD May 02, 2016 11:38
[2016-05-02] MEDS ORDERED: CALC1TAB12 PO (11:39)
[2016-05-02] MEDS ORDERED: MAGNESIUM HYDROXIDE SUSP 30 ML CUP PO PRN (11:45)
[2016-05-02] MEDS ORDERED: LACTULOSE SYRUP 20 GM/30 ML CUP PO PRN (11:45)
[2016-05-02] MEDS ORDERED: DOCUSATE SODIUM 50 MG/SENNA 8.6 MG TAB PO SCH (11:45)
[2016-05-02] MEDS ORDERED: DOCUSATE SODIUM 50 MG/SENNA 8.6 MG TAB PO PRN (11:45)
[2016-05-02 12:00] VITALS: BP 116/65; PULSE 63; RESP 16; TEMP 96.3; O2SAT 98
[2016-05-02] MEDS: LOSARTAN 25 MG TAB PO SCH (13:11)
--- NOTE | 2016-05-29 17:19 | HHI.DS ---
Discharge Summary Admission Date Apr 29, 2016 at 21:23 Discharge Date: May 02, 2016 Admitting Diagnosis Inability to ambulate, Low back pain. (1) Fall ICD Code: W19.XXXA Diagnosis: Principal (2) Intractable back pain ICD Code: M54.9 Diagnosis: Principal (3) Unable to ambulate ICD Code: R26.2 Diagnosis: Principal Procedures none Brief History - From Admission This is an 89-year-old male with a PMH of Bladder CA, CAD, Pacemaker and HTN who presented to ER w/ complaints of back pain following fall at home. States he fell down one step and landed on his face. No LOC reported. On arrival, BP 136/83, HR 77, O2 sat 96% on RA, Afebrile. CBC unremarkable. Chemistry essentially unremarkable. CT Head with no acute findings. CT Maxillofacial negative. CT C-spine with multilevel degenerative disc disease, no acute changes from prior. CT L-spine with multilevel degenerative disc disease no acute findings. CXR with left basilar scarring, no infiltrate. S/p Morphine and Flexeril in ER w/ some relief. Pt was to be d/c'd home, however unable to ambulate secondary to pain. Pt lives at home alone, unsafe discharge. Imaging Last Impressions Chest X-Ray 04/29/16 1713 Signed Impressions: Service Date/Time: Friday, April 29, 2016 17:45 - CONCLUSION: 1. Persistent left basilar atelectasis/scarring. 2. No acute infiltrate. Stable postsurgical changes. Juan Crawley MD Maxillofacial CT 04/29/16 0000 Signed Impressions: Service Date/Time: Friday, April 29, 2016 18:01 - CONCLUSION: No acute osseous injury. Juan Crawley MD Lumbar Spine CT 04/29/16 0000 Signed Impressions: Service Date/Time: Friday, April 29, 2016 18:03 - CONCLUSION: 1. Multilevel degenerative disc disease with marginal spurring most prominent at L3-L4 and L4-L5. 2. Bony fusion at L1-L2 with an osseous cyst bridging the fused endplates. No acute fracture. 3. Coarsened trabeculae in the left ilium characteristic of Paget's disease. 4. No acute osseous injury. Juan Crawley MD Head CT 04/29/16 0000 Signed Impressions: Service Date/Time: Friday, April 29, 2016 17:59 - CONCLUSION: 1. 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 2. No acute intracranial process. Juan Crawley MD Cervical Spine CT 04/29/16 0000 Signed Impressions: Service Date/Time: Friday, April 29, 2016 17:59 - CONCLUSION: 1. Multilevel degenerative disc disease with loss of disc height and marginal spurring at almost every cervical level. There is straightening of the normal lordotic curvature and stable grade I anterolisthesis of C4 on C5 probably due to facet degeneration. 2. Multilevel bony fusion across the facets of the cervical spine, right greater than left. 3. There is some foraminal narrowing most prominent at C3-C4 rightward and C4-C5 leftward which may compromise their corresponding exiting nerve roots. 4. No significant change from prior. Juan Crawley MD PE at Discharge GENERAL: Well-nourished, well-developed elderly male patient in [facility]. SKIN: Warm and dry. No rash. HEAD: Normocephalic. Atraumatic. EYES: Pupils equal and round. No scleral icterus. No injection or drainage. ENT: No nasal bleeding or discharge. Mucous membranes pink and moist. NECK: Supple. Trachea midline. CARDIOVASCULAR: Regular rate and rhythm. S1, S2 noted. No murmur appreciated. RESPIRATORY: No accessory muscle use. Clear to auscultation. Breath sounds equal bilaterally. GASTROINTESTINAL: Abdomen soft, non-tender, nondistended. Normoactive bowel sounds x4. MUSCULOSKELETAL: No obvious deformities. Extremities without clubbing, cyanosis , or edema. Right lumbar paraspinous muscle tenderness to palpation. NEUROLOGICAL: Awake and alert. No obvious cranial nerve deficits. Motor grossly within normal limits. Moving all extremities spontaneously with generalized weakness. Normal speech. PSYCHIATRIC: Appropriate mood and affect; insight and judgment normal. Hospital Course 89-year-old male with a PMH of Bladder CA, CAD, Pacemaker and HTN who presented to after a fall at home and was unable to be discharged secondary to back pain with ambulation Fall: s/p mechanical trip and fall at home. Images reviewed including CT Head/ CT Maxillofacial w/ no acute findings; CT C/L-Spine w/ multilevel degenerative disc disease, however no acute findings; Head CT with mild chronic changes with some cortical atrophy and old lacunar type infarct, no acute intracranial process; CXR persistent left basilar atelectasis/scarring, no acute infiltrate. Fall precautions. Continue supportive care, see below. with Intractable Back Pain and difficulty with ambulation: Secondary to fall. S/p Morphine/Flexeril in ER w/ some improvement. Continue pain control with [place]ner prn, IV Dilaudid prn breakthrough pain; Robaxin prn spasms, heating pad. PT recommending rehab, case management to assist with placement. Will check vit D Constipation: stool softeners/laxatives. Reentry atrial tachycardia/HTN/HLD: Chronic, stable. S/p pacemaker placement. Continue aspirin, statin, metoprolol, losartan. GERD: Chronic, stable. Continue PPI and Zantac. DVT Prophylaxis: SCD/Teds. Discharge Planning Discharge patient to SNF Condition on discharge: Stable Heart Healthy Diet as tolerated Ad Patty activity Rx written: [place]tner Follow-up with primary care physician within 2-3 days Patient improved . Discharged to SNF in fairly stable condition. Pt Condition on Discharge: Stable Discharge Disposition: Discharge to SNF Discharge Time: > 30 minutes Discharge Instructions DIET: Follow Instructions for: Heart Healthy Diet Activities you can perform: Regular-No Restrictions Follow up Referrals: PCP Follow-up - 2-3 Days New Medications: Calcium Carbonate-Cholecalciferol (Calcium 500 +D) 500-400 Mg-Unit Tab 1 TAB PO BID Calcium Supplement #30 Ref 0 TAB Hydrocodone-Acetaminophen (Hardtner) 5-325 mg Tab 1 TAB PO Q4H PRN PAIN #30 Ref 0 TAB Continued Medications: Aspirin (Aspirin) 81 Mg Tabdr 81 MG PO DAILY TAB Atorvastatin (Atorvastatin) 10 Mg Tab 10 MG PO HS Cholesterol Management #30 Ref 0 TAB Cephalexin (Keflex) 500 Mg Cap 500 MG PO Q8H Infection #9 Ref 0 CAP Docusate Sodium (Colace) 100 Mg Cap 100 MG PO BID PRN Constipation #60 Ref 0 CAP Furosemide (Furosemide) 20 Mg Tab 20 MG PO DAILY #30 Ref 0 TAB Losartan (Cozaar) 25 Mg Tab 25 MG PO DAILY Blood Pressure Management #30 Ref 0 TAB Methocarbamol (Methocarbamol) 500 Mg Tab 500 MG PO Q8HR PRN Muscle Spasm #21 TAB Metoprolol Tartrate (Metoprolol Tartrate) 50 Mg Tab 50 MG PO BID #60 Ref 0 TAB Pantoprazole (Protonix) 40 Mg Tab 40 MG PO DAILY Reflux #30 Ref 0 TAB Potassium Chloride ER (Klor-Con 10) 10 Meq Tab 10 MEQ PO DAILY Electrolyte Replacement #30 Ref 0 TAB Ranitidine (Zantac) 150 Mg Tab 150 MG PO DAILY Reduce Stomach Acid #30 Ref 0 TAB Discontinued Medications: Tramadol (Ultram) 50 Mg Tab 50 MG PO Q6H PRN PAIN #12 Ref 0 TAB Margot Daniels MD May 29, 2016 17:18
[2016-08-22] MEDS ORDERED: MAGICADU2 SWISH-SPIT (14:53)
[2016-09-13] MEDS ORDERED: DOCU1CAP25 (05:45)
[2016-09-13] MEDS ORDERED: LOSA25TA PO (05:45)
[2016-09-13] MEDS ORDERED: POTA-243 PO (05:45)
[2016-09-13] MEDS ORDERED: ASPI81CH CHEW (05:45)
[2016-09-13] MEDS ORDERED: FERR200T PO (05:45)
[2016-09-13] MEDS ORDERED: ALBU1.25 NEB (05:47)
== END 2016-05-02 15:42 ==
LOC: NEPA 15:19 → NEDA 21:23 → NEPGCP 23:43 → HOCA 05-02 01:46
PROVIDERS: ADMIT Hospitalist; ATTEND Hospitalist
DX: M54.41 Lumbago with sciatica, right side (principal); W10.8XXA Fall (on) (from) other stairs and steps, initial encounter; M54.5 Low back pain; M51.16 Intervertebral disc disorders with radiculopathy, lumbar region; M25.78 Osteophyte, vertebrae; J98.11 Atelectasis; I44.0 Atrioventricular block, first degree; I25.10 Atherosclerotic heart disease of native coronary artery without angina pectoris; I10 Essential (primary) hypertension; Z95.1 Presence of aortocoronary bypass graft; Z79.01 Long term (current) use of anticoagulants; Z86.11 Personal history of tuberculosis; Z85.51 Personal history of malignant neoplasm of bladder
CPT/HCPCS: 70450; 70486; 71010; 72125; 72131; 80048; 80053; 81001; 85007; 85025; 85027; 85610; 85730; 93005; 94150; 96374; 97110; 97116; 97163; 99285; G0378; G8987; G8988; J2270; J2930